=== PATIENT | female | born 1995 | race Caucasian/White ===

== ENCOUNTER 2018-12-28 18:22 | Emergency (ER) | payer OTHER ==
[~2018-12-28] VITALS: Ht 162.6 cm; Wt 79.4 kg
[2018-12-28 19:48] VITALS: BP 108/66
== END 2018-12-28 19:49 | disposition home or self-care (01) ==
LOC: M.ERS 18:22
DX: M25.571 Pain in right ankle and joints of right foot (principal)

== ENCOUNTER 2019-02-21 19:41 | Emergency (ER) | payer OTHER ==
[~2019-02-21] VITALS: Ht 162.6 cm; Wt 78.0 kg
[2019-02-21 19:46] VITALS: BP 157/90
[2019-02-21] MEDS ORDERED: ACETAMINOPHEN-1 EAC1 PO (19:47)
[2019-02-21] MEDS ORDERED: PRILOSEC OTC20 MG PO (19:47)
[2019-02-21] MEDS ORDERED: PENICILLIN VK500 MG PO (19:56)
[2019-02-21] MEDS ORDERED: NAPROSYN500 MG PO (19:56)
[2019-02-21] MEDS ORDERED: NORCO 5-325 TA1 EAC1 PO (19:56)
== END 2019-02-21 20:03 | disposition home or self-care (01) ==
LOC: M.ERS 19:41
DX: K04.7 Periapical abscess without sinus (principal)

== ENCOUNTER 2019-06-10 18:21 | Emergency (ER) | payer OTHER ==
[~2019-06-10] VITALS: Ht 162.6 cm; Wt 81.7 kg
[~2019-06-10 18:21] MED LIST: ACETAMINOPHEN-1 EAC1 PO; NAPROSYN500 MG PO; NORCO 5-325 TA1 EAC1 PO; PENICILLIN VK500 MG PO; PRILOSEC OTC20 MG PO
[2019-06-10] MEDS ORDERED: PENICILLIN VK250 MG PO (18:48)
[2019-06-10] MEDS ORDERED: IBU800 MG PO (18:48)
[2019-06-10 19:01] VITALS: BP 126/86
== END 2019-06-10 19:03 | disposition home or self-care (01) ==
LOC: M.ERS 18:21
DX: K04.7 Periapical abscess without sinus (principal)

== ENCOUNTER 2019-07-29 01:46 | Emergency (ER) | payer OTHER ==
[~2019-07-29] VITALS: Ht 162.6 cm; Wt 77.1 kg
[~2019-07-29 01:46] MED LIST changes: +IBU800 MG PO; +PENICILLIN VK250 MG PO
[2019-07-29 02:15] VITALS: BP 111/81
--- NOTE | 2019-07-30 12:28 | EKG ---
[place] [address] ELECTROCARDIOGRAM REPORT Name: SADA CHAVEZ Room: [facility]#: [id number] Admission: 07/29/19 Attend Phys: Discharge: 07/29/19 Date of : [birth year] Report #: [id number] THIS REPORT FOR: //name// [facility] ED Test Date: 2019-07-29 Test Time: 01:51:56 Pat Name: SADA CHAVEZ Department: Room: Gender: F [employer]: : 1995 Requested By: Tyson Coello Order Number: [id number] MD: Jhonny Carrizales Measurements Intervals [place] Rate: 77 P: 29 VA: 146 QRS: 8 QRSD: 94 T: 40 QT: 389 QTc: 441 Interpretive Statements Sinus rhythm RSR' in V1 or V2, right VCD No previous ECG available for comparison Electronically Signed On 07-30-2019 12:27:47 [employer] by Jhonny Carrizales [email or web address] <ELECTRONICALLY SIGNED> By: Jhonny Carrizales MD, [facility] 07/30/19 1227 0151 0 Jhonny Carrizales MD, FACC /EPI
== END 2019-07-29 02:15 | disposition home or self-care (01) ==
LOC: M.ERS 01:46
DX: R07.89 Other chest pain (principal)